=== PATIENT | female | born 1965 | race Caucasian/White ===

== ENCOUNTER 2022-10-13 10:46 | Outpatient (CLI) | payer OTHER, SELFPAY ==
--- NOTE | 2022-10-13 10:53 | MM_ITS ---
WS: [id number] Bilateral screening 3D tomosynthesis digital mammogram, 10/13/2022 Clinical Data: SCREENING Comparison: 05/29/2016 Findings: The breast parenchymal pattern shows heterogeneous density. No spiculated masses or clustered calcifi cations are seen. There are no secondary signs of carcinoma. 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 MM/[place] [id number] Impression: 1. Negative bilateral mammogram unchanged. 2. Recommend annual screening mammograms. BIRADS: 2-Benign FOLLOW UP: 1 Year Follow-up The CAD sample checker was used.
== END 2022-10-13 10:47 | disposition home or self-care (01) ==
LOC: RAD 10:51 → MOBLMAM 10:52
PROVIDERS: PCP Family Medicine; Visit Provider Family Medicine
DX: Z12.31 Encounter for screening mammogram for malignant neoplasm of breast (principal)
CPT/HCPCS: 77063; 77067

== ENCOUNTER 2023-10-17 08:19 | Outpatient (CLI) | payer OTHER, SELFPAY ==
--- NOTE | 2023-10-17 08:24 | MM_ITS ---
WS: [id number] BILATERAL SCREENING DIGITAL TOMOSYNTHESIS MAMMOGRAM WITH CAD HISTORY: SCREENING COMPARISON: 10/13/2022, 05/29/2016 Bilateral CC and MLO views with tomosynthesis and synthetic mammography submitted. Computer aided det ection analyzed. Breast composition: The breasts are extremely dense, which lowers the sensitivity of mammography. No suspicious masses, microcalcifications or architectural distortion. Dense calcifications in each [address] are probably related to fibroadenomas. No suspicious masses. There is an area of mild asymmetry se en on the LEFT MLO projection superiorly which was also noted on 05/29/2016. MM/[place] [id number] IMPRESSION: BI-RADS: 2-Benign FOLLOW UP: 1 Year Follow-up
== END 2023-10-17 08:20 | disposition home or self-care (01) ==
LOC: RAD 08:19
PROVIDERS: PCP Family Medicine; Visit Provider Family Medicine
DX: Z12.31 Encounter for screening mammogram for malignant neoplasm of breast (principal)
CPT/HCPCS: 77063; 77067

== ENCOUNTER 2023-10-30 07:24 | Emergency (ER) | payer OTHER, SELFPAY ==
[2023-10-30 07:29] VITALS: BMI 26.6
--- NOTE | 2023-10-30 07:32 | ECG_ITS ---
[facility] Test Date: 2023-10-30 Pat Name: Sheila Otto Department: Room: Gender: Female Rcp: Mina : 1965 Requested By: Devan Hatfield Order Number: [id number] Kaye MD: Ivet Mtz M.D. Measurements Intervals [place] Rate: 78 P: 63 SC: 146 QRS: 32 QRSD: 79 T: 52 QT: 389 QTc: 443 Interpretive Statements SINUS RHYTHM LOW QRS VOLTAGE IN PRECORDIAL LEADS [QRS DEFLECTION < 1.0 mV IN CHEST LEADS] INTERPRETATION BASED ON A DEFAULT AGE OF 40 YEARS No previous ECG available for comparison Electronically Signed On 10-30-2023 23:29:00 CDT by Ivet Mtz M.D. [id number] f
[2023-10-30 07:33] VITALS: BP 197/119; PULSE 90; RESP 16; TEMP 36.5; O2SAT 100
--- NOTE | 2023-10-30 07:33 | XRR_ITS ---
PROCEDURE INFORMATION: Exam: XR Chest Exam date and time: 10/30/2023 7:57 AM Age: 58 years old Clinical indication: Cough and dyspnea; Patient HX: Cp, cough, high blood pressure; Additional info: Dyspnea/cough TECHNIQUE: Imaging protocol: Radiologic exam of the chest. Views: 1 view. COMPARISON: No relevant prior studies available. FINDINGS: Lungs: Unremarkable. No consolidation. Pleural spaces: Unremarkable. No pleural effusion. No pneumothorax. Heart/Mediastinum: Unremarkable. No cardiomegaly. Bones/joints: Unremarkable. XR/XR chest 1V portable [id number] IMPRESSION: No acute findings.
--- NOTE | 2023-10-30 07:41 | W.ED.CHESTPA ---
HPI - Chest Pain General: Chief Complaint: Chest Pain Stated Complaint: Chest pain, high blood pressure Time Seen by Provider: 10/30/23 07:30 History of Present Illness: 58-year-old female presents emergency room complaining of elevated blood pressure. She has a known history of hypertension she previously was on lisinopril but this was stopped earlier this year because she was having episodes of hypotension. She has a little bit of chest pressure of the left side associated with this it does not radiate anywhere. No shortness of breath no diaphoresis. She is currently not taking any medications for blood pressure she does not use any antihistamines decongestants nasal sprays she does not ingest large amounts of caffeine on a daily basis. No known history of coronary artery disease. Associated symptoms: Deny abdominal pain, dyspnea or fever(s) Related Data Previous Rx's Medication Instructions Recorded lisinopril 10 1 tab PO DAILY 90 days #90 tabs 06/27/19 mg-hydrochlorothiazide 12.5 mg tablet amlodipine 5 mg tablet 5 mg PO DAILY #30 tabs 10/30/23 Allergies Allergy/AdvReac Type Severity Reaction Status Date / Time No Known Allergies Allergy Verified 05/19/22 13:47 Review of Systems Const: Denies: fever(s) or chills Eyes: Denies: change in vision, blurry vision, photophobia, eye discomfort or seeing flashes Card: Reports: chest pain; Denies: edema or swelling of feet/ankles Resp: Denies: dyspnea GI: Denies: abdominal pain : Denies: dysuria, urinary frequency or urinary urgency Musc: Denies: neck pain or back pain Skin/Breast: Denies: rash Neuro: Denies: headache(s), numbness in extremities, weakness in extremities, dizziness or vertigo [facility] ED PFSH: Medical History (Updated 10/30/23 @ 10:37 by Devan Buitrago DO) HTN (hypertension) Physical Exam Const: COMMON NORMALS: no acute distress GENERAL APPEARANCE: cooperative and comfortable ORIENTATION/CONSCIOUSNESS: Yes awake, Yes oriented to person, Yes oriented to place and Yes oriented to time HENMT: COMMON NORMALS: normocephalic, atraumatic and hearing grossly normal bilaterally HEAD & SCALP: normocephalic and atraumatic Resp: COMMON NORMALS: normal respiratory effort, No retractions, No use of accessory muscles and clear to auscultation bilaterally AUSCULTATION: clear to auscultation bilaterally Cardio: COMMON NORMALS: regular rate, regular rhythm and No murmurs present (Cardio) RATE: regular rate RHYTHM: regular rhythm GI: COMMON NORMALS: Soft to palpation and No hepatosplenomegaly present AUSCULTATION: Yes normoactive bowel sounds PALPATION: Yes Soft to palpation, No Tenderness to palpation present (GI), No Guarding due to palpation present (GI) and Yes No hepatosplenomegaly present Extremity: COMMON NORMALS: normal to inspection, capillary refill normal, no clubbing, cyanosis or edema, no calf tenderness and no pedal edema Neuro: SENSORIUM/ORIENTATION: Yes oriented to person, Yes oriented to place and Yes oriented to time Skin: COMMON NORMALS: no rashes or lesions noted GENERAL SKIN EXAM: no rashes or lesions noted Course Vital Signs: Vital signs: Vital Signs Temperature 97.7 F 10/30/23 07:33 Pulse Rate 76 10/30/23 11:21 Respiratory Rate 15 10/30/23 11:21 Blood Pressure 141/102 10/30/23 11:21 Pulse Oximetry 97 10/30/23 11:21 Oxygen Delivery Me thod Room Air 10/30/23 11:21 MDM - Chest Pain Medical Decision Making Cardiac enzymes and EKG did not show any acute changes. Pressure patient's blood pressure is improved. Will start her on amlodipine 5 mg daily to take in addition to her lisinopril hydrochlorothiazide recommend follow-up with her primary care doctor for recheck blood pressure within the next week and medications can be adjusted to achieve adequate control. Will also set her up for a outpatient Lexiscan sestamibi stress test. Medical Records I reviewed the patient's medical records. Lab Data I reviewed the patient's lab results. 10/30/23 07:39 10/30/23 07:39 Radiology Impressions Chest X-Ray 10/30/23 07:33 IMPRESSION: No acute findings. Laboratory Results WBC 7.94 10^3/uL (3.29-11.43) 10/30/23 07:39 RBC 5.11 10^6/uL (3.85-5.65) 10/30/23 07:39 Hgb 14.50 g/dL (11.27-16.99) 10/30/23 07:39 Hct 45.7 % (36-47) 10/30/23 07:39 MCV 89.4 fl (85-98) 10/30/23 07:39 MCH 28.4 pg (27-33) 10/30/23 07:39 MCHC 31.7 g/dL (30-55) 10/30/23 07:39 RDW 12.5 % (12.1-15.1) 10/30/23 07:39 Plt Count 228 10^3/cmm (157-399) 10/30/23 07:39 MPV 10.7 fL (7.4-10.4) H 10/30/23 07:39 Neut % (Auto) 58.5 % 10/30/23 07:39 Lymph % (Auto) 33.1 % 10/30/23 07:39 Wallace % (Auto) 6.8 % 10/30/23 07:39 Eos % (Auto) 1.1 % 10/30/23 07:39 Baso % (Auto) 0.4 % 10/30/23 07:39 Neut # (Auto) 4.64 10^3/uL (1.8-7.7) 10/30/23 07:39 Lymph # (Auto) 2.6 10^3/uL (0.8-4.8) 10/30/23 07:39 Wallace # (Auto) 0.5 10^3/uL (0.2-0.9) 10/30/23 07:39 Eos # (Auto) 0.1 10^3/uL (0.0-0.8) 10/30/23 07:39 Baso # (Auto) 0.0 10^3/uL (0.0-0.1) 10/30/23 07:39 Nucleated RBC % (auto) 0 % 10/30/23 07:39 Nucleated RBCs # 0.0 /100WBC 10/30/23 07:39 Sodium 140 mmol/L (136-145) 10/30/23 07:39 Potassium 4.3 mmol/L (3.5-5.1) 10/30/23 07:39 Chloride 104 mmol/L (98-107) 10/30/23 07:39 Carbon Dioxide 23 mmol/L (22-29) 10/30/23 07:39 Anion Gap 17.3 (5-19) 10/30/23 07:39 BUN 14 mg/dL (6-20) 10/30/23 07:39 Creatinine 0.7 mg/dL (0.5-0.9) 10/30/23 07:39 GFR Calculation 86.6 mL/min (90-130) L 10/30/23 07:39 Glucose 101 mg/dL (65-115) 10/30/23 07:39 Calculated Osmolality 291 mOsm/kg (285-295) 10/30/23 07:39 Calcium 9.3 mg/dL (8.5-10.5) 10/30/23 07:39 Total Bilirubin 0.7 mg/dL (0.15-1.2) 10/30/23 07:39 AST 18 U/L (0-32) 10/30/23 07:39 ALT 15 U/L (0-33) 10/30/23 07:39 Alkaline Phosphatase 92 U/L (35-105) 10/30/23 07:39 Troponin T Baseline < 6 ng/L (0-10) 10/30/23 07:39 Troponin T 120 Minute 6.00 ng/L (0-10) 10/30/23 09:35 Delta Troponin T 0.84210 ABS# (0-10) 10/30/23 09:35 Total Protein 7.5 g/dL (6.6-8.7) 10/30/23 07:39 Albumin 4.3 g/dL (3.5-5.2) 10/30/23 07:39 Globulin 3.2 g/dL (1.3-4.6) 10/30/23 07:39 All radiology interpretation(s) finalized by discharge Discharge Plan Discharge Patient Disposition: Home Clinical Impression: Atypical chest pain, HTN (hypertension) Condition: Stable Prescriptions: New amlodipine 5 mg tablet 5 mg PO DAILY Qty: 30 0RF No Action lisinopril-hydrochlorothiazide 10-12.5 mg tablet 1 tab PO DAILY 90 Days Qty: 90 0RF Rx Instructions: refilling in [facility] absence Discharge Orders: Discharge ED (Routine); Ordered 10/30/23 Ordered By: Devan Buitrago Referrals: Manjinder Olivares MD [Primary Care Provider] - Discharge Diet: Usual diet Discharge Activity: Resume usual activity Patient Instructions: Opioid Safety, Pain Management Activity Restrictions/Additional Instructions: Thank you for choosing [facility] for your healthcare needs today. It is very important that you follow up as instructed or that you return to the Emergency Department should you have concerns or if your condition changes or worsens in any way. You were seen today with complaints of elevated blood pressure and chest comfort EKG did not show any acute changes. Your blood pressure was elevated and you were given medications in the emergency room to treat it. Recommend starting amlodipine 5 mg daily and following up with your primary care doctor or cardiology to reevaluate blood pressure within the next week. Coding Level of Care Code ED Punch Card Operator for Yo Mortensen
[2023-10-30] MEDS: amlodipine 10 mg Tablet PO (07:49)
[2023-10-30] MEDS: labetalol 5 mg/mL SDV 20mL 10 MG IVP (07:49)
[2023-10-30 07:51] LABS: Basophils % 0.4 %; Eosinophils # 0.1 10^3/uL (0.0-0.8); Eosinophils % 1.1 %; Hematocrit 45.7 % (36-47); Lymphocytes # 2.6 10^3/uL (0.8-4.8); Lymphocytes % 33.1 %; Mean Corpuscular HGB Conc 31.7 g/dL (30-55); Mean Corpuscular Hemoglobin 28.4 pg (27-33); Mean Corpuscular Volume 89.4 fl (85-98); Mean Platelet Volume 10.7 fL (7.4-10.4); Monocytes # 0.5 10^3/uL (0.2-0.9); Monocytes % 6.8 %; Neutrophils # 4.64 10^3/uL (1.8-7.7); Neutrophils % 58.5 %; Nucleated Red Blood Cells % 0 %; Platelet Count 228 10^3/cmm (157-399); Red Blood Count 5.11 10^6/uL (3.85-5.65); Red Cell Distribution Width 12.5 % (12.1-15.1); White Blood Count 7.94 10^3/uL (3.29-11.43)
[2023-10-30 08:04] LABS: Alanine Aminotransferase 15 U/L (0-33); Albumin Level 4.3 g/dL (3.5-5.2); Alkaline Phosphatase 92 U/L (35-105); Anion Gap 17.3 (5-19); Aspartate Amino Transferase 18 U/L (0-32); Blood Urea Nitrogen 14 mg/dL (6-20); Calcium 9.3 mg/dL (8.5-10.5); Carbon Dioxide 23 mmol/L (22-29); Chloride 104 mmol/L (98-107); Creatinine Clr Calc Pharmacy 96.0562; Globulin 3.2 g/dL (1.3-4.6); Glomerular Filtration Rate 86.6 mL/min (90-130); Glucose 101 mg/dL (65-115); Osmolality Calculated 291 mOsm/kg (285-295); Potassium 4.3 mmol/L (3.5-5.1); Sodium 140 mmol/L (136-145); Total Bilirubin 0.7 mg/dL (0.15-1.2); Total Protein 7.5 g/dL (6.6-8.7)
[2023-10-30 08:06] LABS: Troponin(5th) Baseline < 6 ng/L (0-10)
[2023-10-30 09:01] VITALS: BP 148/109; PULSE 77; RESP 16; O2SAT 95
[2023-10-30 10:08] LABS: Troponin 5 2HR Delta 0.00001 ABS# (0-10)
[2023-10-30 10:27] VITALS: BP 143/86; PULSE 79; RESP 15; O2SAT 99
[2023-10-30 11:21] VITALS: BP 141/102; PULSE 76; RESP 15; O2SAT 97
--- NOTE | 2023-11-01 07:25 | DCPLANNER ---
faxed outpatient lexiscan order to scheduling for er f/u
== END 2023-10-30 11:25 | disposition home or self-care (01) ==
PROVIDERS: Emergency Provider Family Medicine; PCP Family Medicine
DX: R07.89 Other chest pain (principal); I10 Essential (primary) hypertension
CPT/HCPCS: 71045; 80053; 84484; 85025; 93005; 96374; 99285; J3490

== ENCOUNTER 2024-04-07 13:09 | Day surgery (SDC) | payer OTHER, SELFPAY ==
[2024-04-07 13:41] VITALS: BP 179/117; PULSE 92; RESP 16; TEMP 36.6; O2SAT 100; BMI 29.0
--- NOTE | 2024-04-07 13:57 | ANES.PREANE2 ---
Pre-Anesthetic Assessment Height/Weight: Height 1.7 m Weight 83.915 kg Temp Pulse Resp BP Pulse Ox O2 Del Method 97.8 F 92 16 179/117 100 Room Air 04/07/24 13:41 04/07/24 13:41 04/07/24 13:41 04/07/24 13:41 04/07/24 13:41 04/07/24 13:41 Preop Diagnosis: screening Operation Date: 04/07/24 14:15 Proposed Procedures p Colonoscopy 49772, G0121, Z12.11(Not Applicable) - Darian Mann MD Was Beta Dejon taken within 24 hours: N/A Was Clonidine taken within 24 hours: N/A Last intake: Intake Last Liquid Date 04/06/24 Last Liquid Time 13:15 Last Solid Date 04/05/24 Last Solid Time 20:00 Social No alcohol and No tobacco Exam alert, oriented x 3 and clear to auscultation bilaterally Airway Submandibular: within normal limits Cervical ROM: within normal limits Mallampati: Class II Dentition: full History/ROS No significant history except as noted Pulmonary None reported CV/HEM Hypertension (took BP meds until July-not currently) None reported Hepatic None reported GI None reported Metabolic None reported Musc/skel None reported Neuropsych Anxiety Anesthetic Plan ASA status: 2 Anesthesia: MAC Risk of > 500 ml blood loss (7ml/kg in children): No Medications/Allergies Home Medications Medication Instructions Recorded Confirmed Last Taken Type acetaminophen 325 mg tablet 325 mg PO QID PRN Headache 04/07/24 04/07/24 04/07/24 08:00 History (Tylenol) Allergies Allergy/AdvReac Type Severity Reaction Status Date / Time No Known Allergies Allergy Verified 04/07/24 13:38 [facility] Anesthesia Medical History HTN (hypertension) Social History Smoking and tobacco/nicotine status: never used tobacco/nicotine Data Anesthesia Cardiac Studies: No Data to Display
[2024-04-07] MEDS: sodium chloride 0.9% 500 ML 15 ML IV (14:03)
--- NOTE | 2024-04-07 14:40 | W.PM.OPSUD ---
Surgery/Procedure H&P Update DATE OF PROCEDURE: April 07, 2024 DATE H&P PERFORMED: 03/10/25 H&P UPDATE INFORMATION: I have reviewed H&P completed within last 30 days, I have examined patient prior to procedure and No changes to prior documentation PREOP DIAGNOSIS: screening PLANNED PROCEDURE: Operation Date: 04/07/24 14:15 Proposed Procedures p Colonoscopy 92479, G0121, Z12.11(Not Applicable) - Darian Mann MD
[2024-04-07 15:38] VITALS: BP 141/93; PULSE 82; RESP 16; TEMP 36.2; O2SAT 94
--- NOTE | 2024-04-07 16:10 | ANE.PACU2 ---
Inpatient post-anesthesia follow up: Airway intact: Yes Vital signs: Temperature 97.2 F Pulse Rate 82 Respiratory Rate 16 Blood Pressure 141/93 Pulse Oximetry 94 Oxygen Delivery Me thod Nasal Cannula Oxygen Flow Rate 4 Fraction of Inspir ed Oxygen Hydration adequate: Yes Nausea and vomiting: No Pain level: 1 Mental status: Baseline
== END 2024-04-07 16:13 | disposition home or self-care (01) ==
PROVIDERS: PCP Family Medicine; Visit Provider Student in an Organized Health Care Education/Training Program
PROC: 0DJD8ZZ Inspection of Lower Intestinal Tract, Via Natural or Artificial Opening Endoscopic (ICD-10-PCS; CPT 45378; principal; 2024-04-07 14:15)
DX: Z12.11 Encounter for screening for malignant neoplasm of colon (principal); K64.1 Second degree hemorrhoids; K64.4 Residual hemorrhoidal skin tags; I10 Essential (primary) hypertension
CPT/HCPCS: 45378; J2704; J7040